=== PATIENT | female | born 1955 | race Asian ===

== ENCOUNTER 2018-06-10 10:19 | Emergency (ER) | payer SELFPAY ==
[2018-06-10 10:28] VITALS: BP 152/83; PULSE 68; TEMP 98.3; BMI 26.5
--- NOTE | 2018-06-10 11:07 | PDOC ---
History of Present Illness - General Chief Complaint: Edema Stated Complaint: RT FACIAL SWELLING Time Seen by Provider: 06/10/18 10:46 History Source: Patient, Family (daughter as knitting inspector ) Exam Limitations: No Limitations - History of Present Illness Initial Comments: 06/10/18 10:57 63 yo female pmh of HTN (on lisinopril) presents to the ED for 2 days of red, swollen and painful right lower jaw, mouth and submandibular region. Pt saw her dentist 2 weeks ago and was told upcoming dental work will need to be done to the crowns located in the right lower jaw and was given an amoxicillin prescription just incase she needed to fill it for potential infection. Pt states Monday night she noticed pain and redness to the right lower mouth and jaw and filled the amoxicillin prescription which she begun taking Monday but noted worsening swelling in the jaw and swelling to the lips. Pt did not take the Amoxicillin today and notes decrease in swelling in the lips but continuation of pain, redness and swelling to the jaw. Pt admits to chills yesterday without F/N/V, abscess collection or drainage of pus in the mouth, difficulty swallowing, difficulty breathing or current swelling of the lips. Past History - Past Medical History Allergies/Adverse Reactions: Allergies Allergy/AdvReac Type Severity Reaction Status Date / Time No Known Allergies Allergy Verified 06/10/18 10:21 Home Medications: Ambulatory Orders Amoxicillin - [Amoxicillin 500mg Capsule -] 500 mg PO Q8H 06/10/18 Clindamycin [Cleocin -] 300 mg PO TID #21 capsule 06/10/18 Ibuprofen 400 mg PO ASDIR 06/10/18 Lisinopril/Hydrochlorothiazide [Lisinopril-Hctz 10-12.5 mg Tab] 1 each PO DAILY 06/10/18 COPD: No HTN: Yes - Suicide/Smoking/Psychosocial Hx Smoking History: Current every day smoker Have you smoked in the past 12 months: Yes Number of Cigarettes Smoked Daily: 6 Information on smoking cessation initiated: Yes 'Breaking Loose' booklet given: 07/03/15 Hx Alcohol Use: (social) Drug/Substance Use Hx: No Substance Use Type: None Hx Substance Use Treatment: No Review of Systems - Review of Systems Constitutional: Yes: Chills. No: Fever HEENTM: Yes: Throat Swelling, Mouth Pain, Mouth Swelling. No: Difficulty Swallowing Respiratory: No: Shortness of Breath Cardiac (ROS): No: Chest Pain : No: Dysuria Integumentary: Yes: Erythema. No: Pruritus *Physical Exam - Vital Signs Last Vital Signs Temp Pulse Resp BP Pulse Ox 98.3 F 68 18 152/83 98 06/10/18 10:19 06/10/18 10:19 06/10/18 10:19 06/10/18 10:19 06/10/18 10:19 - Physical Exam General Appearance: Yes: Nourished, Appropriately Dressed. No: Apparent Distress HEENT: positive: EOMI, Other (No tenderness to the inner portion of the gums. Positive tenderness, erythema and mild swelling to the outer portion of the lower gums on the right. No abscess or area of fluctuance in the mouth. Submandibular and right buccal swelling, pain and warmth noted ). negative: Tonsillar Exudate Neck: positive: Trachea midline, Normal Thyroid, Supple, Tender lateral, Other ( warmth and swelling to the right submandibular region without difficulty swallowing ) Respiratory/Chest: positive: Lungs Clear, Normal Breath Sounds. negative: Respiratory Distress, Accessory Muscle Use, Labored Respiration, Crackles, Rales , Rhonchi, Stridor, Wheezing Cardiovascular: positive: Regular Rhythm, Regular Rate, S1, S2. negative: Edema , JVD, Murmur Vascular Pulses: Dorsalis-Pedis (R): 4+, Doralis-Pedis (L): 4+ Gastrointestinal/Abdominal: positive: Flat, Soft. negative: Distended, Guarding , Rebound Extremity: positive: Normal Capillary Refill Integumentary: positive: Dry, Warm, Erythema, Swelling Moderate Sedation - Procedure Monitoring Vital Signs: Procedure Monitoring Vital Signs Temperature 98.3 F 06/10/18 10:19 Pulse Rate 68 06/10/18 10:19 Respiratory Rate 18 06/10/18 10:19 Blood Pressure 152/83 06/10/18 10:19 O2 Sat by Pulse Oximetry (%) 98 06/10/18 10:19 ED Treatment Course - LABORATORY CBC & Chemistry Diagram: 06/10/18 11:35 06/10/18 11:36 Medical Decision Making - Medical Decision Making 06/10/18 12:51 63 yo female presents for 2 days of mouth swelling, redness and pain after being told an up coming dental procedure regarding her crowns is pending. Pt given 500mg Amoxicillin BID which she started yesterday for the possible infection. Pt had lip swelling after Amoxicillin yesterday and no swelling today , did not take meds. Pt dentist not in office until 06/13/2018 due to holidays Vitals WNL NAD AOX3 Exam see note DDX includes but is not limited to: dental abscess, ludwigs angina, allergic rxn , cellulitis extension from dental infection Neck CT with IV cont done to access extent of infection IV 600 mg Clinda given do to extent of infection and possible allergy to amoxicillin IV tylenol given for pain Reassess after imaging to determine proper dispo There is diffuse right-sided facial soft tissue swelling with inflammatory change and thickening of the platysma. There are no definitive rim-enhancing fluid collections to suggest abscess. Multiple reactive lymph nodes are seen throughout the neck. There is no evidence for obvious osseous destruction of the maxilla or mandible. Few foci of air seen anterior to the right central incisor and lateral incisor. Xi no nasal mucosal thickening noted of the right maxillary sinus without definitive air-fluid level. Subcentimeter right thyroid nodule noted. The remainder of the examination without significant abnormality. IMPRESSION: Diffuse right-sided facial soft tissue swelling with reactive lymphadenopathy suggestive of cellulitis. No drainable fluid collection. Please correlate with dental exam. Discussed results with pt who agrees to have strict return precautions if the swelling worsens or there is any difficulty swallowing or with breathing. Clida 300mg PO 3X daily ordered. Pt will call Dentist with follow up esther *DC/Admit/Observation/Transfer Diagnosis at time of Disposition: Dental infection - Discharge Dispostion Disposition: HOME Condition at time of disposition: Stable - Prescriptions Prescriptions: Clindamycin [Cleocin -] 300 mg PO TID #21 capsule - Referrals - Patient Instructions Printed Discharge Instructions: DI for Cellulitis -- Adult, DI for Tooth Decay Additional Instructions: Please return to the Emergency Room for new or worsening symptoms including but not limited to: further swelling around the mouth or tongue, difficulty swallowing, difficulty breathing, high fevers or severe pain. You my proceed directly to a hospital with Dental Surgeons such as [facility]. Take the antibiotic Clindamycin 300mg 3 times daily for the next 7 days for the infection. Call your dentist and make an appointment as soon as possible. Thank you - Post Discharge Activity
[2018-06-10] MEDS ORDERED: CLINDAMYCIN 600MG PREMIX IVPB 600 MG/50 ML BAG IVPB ONE (11:23)
[2018-06-10] MEDS ORDERED: CLINDAMYCIN PHOSPHATE 300 MG/2 ML VIAL ONE ×2 (11:39→13:54)
[2018-06-10 12:11] LABS: ALBUMIN 3.7 g/dl (3.5-5.0); ALK PHOS 75 U/L (32-92); ANION GAP 8 MMOL/L (8-16); BILIRUBIN,TOTAL 2.2 mg/dl (0.2-1.0); BLOOD UREA NITROGEN 11 mg/dl (7-18); CALCIUM 8.8 mg/dl (8.4-10.2); CHLORIDE 105 mmol/L (98-107); CO2 25 mmol/L (22-28); CREATININE 0.6 mg/dl (0.6-1.3); GLUCOSE,RANDOM 104 mg/dl (74-106); POTASSIUM 4.7 mmol/L (3.5-5.1); SGOT/AST 40 U/L (10-42); SODIUM 138 mmol/L (136-145); TOT PROT 6.5 g/dl (6.4-8.3)
[2018-06-10 12:18] LABS: BASO % 1.6 % (0-2.0); EOS % 0.4 % (0-4.5); HEMATOCRIT 40.2 % (32.4-45.2); HEMOGLOBIN 13.6 GM/dl (10.7-15.3); LYMPH % 20.1 % (8-40); MCH 31.1 pg (25.7-33.7); MCHC 33.8 g/dl (32.0-36.0); MEAN CELL VOLUME 92.2 fl (80-96); MEAN PLT VOLUME 10.3 fl (7.5-11.1); NEUT % 71.9 % (42.8-82.8); PLATELET COUNT 87 K/MM3 (134-434); RBC 4.36 M/mm3 (3.60-5.2); RDW 12.8 % (11.6-15.6); WHITE BLOOD COUNT 6.7 K/mm3 (4.0-10.8)
[2018-06-10 12:21] LABS: SGPT/ALT 8 U/L (10-40)
[2018-06-10] MEDS ORDERED: ACETAMINOPHEN 1000 MG/100 ML VIAL (NON FORMULARY) IVPB ONE (12:45)
[2018-06-10] MEDS ORDERED: ACETAMINOPHEN INJECTION 100 ML IVPB ONE (12:45)
--- NOTE | 2018-06-10 16:33 | PDOC ---
Attending Attestation - Resident Resident Name: Corbin Malik - ED Attending Attestation I have performed the following: I have examined & evaluated the patient, The case was reviewed & discussed with the resident, I agree w/resident's findings & plan - HPI HPI: 06/10/18 16:29 Patient is undergoing dental work and was doing well over the last 2 weeks. The dentist had given her prescription for amoxicillin to hold onto. Yesterday she started having some pain in the right lower quadrant of her mouth and today she woke up with some right facial swelling along the jawline and the right lower lip. There is no fever or chills. There is no difficulty speaking or swallowing. Patient took 2 doses of amoxicillin 500 mg yesterday. She now comes into the emergency department for further evaluation. - Physicial Exam PE: 06/10/18 16:29 On examination, the patient is awake and alert. She appears well. On oral examination there is some tenderness to the gums along the right lower quadrant premolars, but there is no fluctuance or abscess palpable. The right face is swollen along the line of the mandible. The floor of the mouth is soft. The neck is nontender. The patient is swallowing and breathing normally. Lungs are clear. Heart is regular rhythm without murmur. - Medical Decision Making 06/10/18 16:30 CT scan of the neck was performed. There is some inflammatory change along the right lower quadrant of the mouth. There is no abscess collection, indicating there is nothing to drain. Patient was observed in the ED for several hours and the swelling has gone down after IV clindamycin. Laboratory studies reviewed. White blood cell count is 6.7 with 72% neutrophils , normal. Other laboratory studies are normal. Patient will be discharged on oral clindamycin, 300 mg tid, first dose tonight. She will follow up with us in the ED tomorrow to assure resolution of the swelling. She states she will return immediately if the swelling progresses or if she has any difficulty with breathing or swallowing. Laboratory Results - last 24 hr 06/10/18 06/10/18 11:35 11:36 WBC 6.7 RBC 4.36 Hgb 13.6 Hct 40.2 MCV 92.2 MCH 31.1 MCHC 33.8 RDW 12.8 Plt Count 87 L MPV 10.3 Absolute Neuts (auto) 4.9 Neutrophils % 71.9 Lymphocytes % 20.1 Monocytes % 6.0 Eosinophils % 0.4 Basophils % 1.6 Sodium 138 Potassium 4.7 Chloride 105 Carbon Dioxide 25 Anion Gap 8 BUN 11 Creatinine 0.6 Creat Clearance w eGFR > 60 Random Glucose 104 Calcium 8.8 Total Bilirubin 2.2 H AST 40 ALT 8 L Alkaline Phosphatase 75 Total Protein 6.5 Albumin 3.7
== END 2018-06-10 17:00 | disposition home or self-care (01) ==
LOC: FER 10:19
PROC: 3E03329 Introduction of Other Anti-infective into Peripheral Vein, Percutaneous Approach (ICD-10-PCS; principal; 2018-06-10)
PROC: 3E033NZ Introduction of Analgesics, Hypnotics, Sedatives into Peripheral Vein, Percutaneous Approach (ICD-10-PCS; 2018-06-10)
DX: K04.7 Periapical abscess without sinus (principal)
CPT/HCPCS: 36415; 70491-TC; 80053; 85025; 99285-25; J0131